=== PATIENT | female | born 1980 | race Caucasian/White ===

== ENCOUNTER 2017-09-09 11:11 | Emergency (ER) | payer MEDICAID, OTHER ==
[~2017-09-09] VITALS: Ht 162.6 cm; Wt 76.0 kg
[2017-09-09 11:12] VITALS: BP 99/71
[2017-09-09] MEDS ORDERED: AMOX500C2 PO (11:22)
== END 2017-09-09 11:36 | disposition home or self-care (01) ==
LOC: ER 11:11
DX: H66.91 Otitis media, unspecified, right ear (principal)
CPT/HCPCS: 99283

== ENCOUNTER 2019-07-04 17:20 | Emergency (ER) | payer MEDICAID, OTHER ==
[~2019-07-04] VITALS: Ht 162.6 cm; Wt 74.0 kg
[2019-07-04] MEDS ORDERED: ACYC-202 PO (18:22)
[2019-07-04 19:01] VITALS: BP 155/97
== END 2019-07-04 19:04 | disposition home or self-care (01) ==
LOC: ER 17:21
DX: B02.9 Zoster without complications (principal); H92.02 Otalgia, left ear; I10 Essential (primary) hypertension; F10.99 Alcohol use, unspecified with unspecified alcohol-induced disorder; Z79.899 Other long term (current) drug therapy; Y90.9 Presence of alcohol in blood, level not specified
CPT/HCPCS: 99283

== ENCOUNTER 2021-03-16 18:43 | Emergency (ER) | payer MEDICAID ==
[~2021-03-16] VITALS: Ht 162.6 cm; Wt 63.0 kg
[2021-03-16 18:54] VITALS: BP 180/102
--- NOTE | 2021-03-16 19:08 | NUR ---
APPROX 3 MINUTES AFTER BEING TRIAGED REGISTRATION WITNESSED THE PATIENT THROW HER BP CUFF ON THE FLOOR AND WALK OUT THE DOOR.
== END 2021-03-16 19:52 | disposition left against medical advice (07) ==
LOC: ER 18:43
DX: H92.01 Otalgia, right ear (principal); Z53.21 Procedure and treatment not carried out due to patient leaving prior to being seen by health care provider

== ENCOUNTER 2021-11-26 16:08 | Emergency (ER) | payer MEDICAID ==
[~2021-11-26] VITALS: Ht 162.6 cm; Wt 68.2 kg
[2021-11-26 16:18] VITALS: BP 165/104
== END 2021-11-26 18:04 | disposition left against medical advice (07) ==
LOC: ER 16:08
DX: S40.861A Insect bite (nonvenomous) of right upper arm, initial encounter (principal); Z53.21 Procedure and treatment not carried out due to patient leaving prior to being seen by health care provider; W57.XXXA Bitten or stung by nonvenomous insect and other nonvenomous arthropods, initial encounter; Y93.89 Activity, other specified; Y92.89 Other specified places as the place of occurrence of the external cause; Y99.8 Other external cause status